=== PATIENT | female | born 1975 | race Caucasian/White ===

== ENCOUNTER 2024-05-06 06:00 | Day surgery (SDC) | payer OTHER, SELFPAY ==
--- NOTE | 2024-05-01 11:31 | ESHP_ITS ---
RE: PHOENIX OLIVA : 1975 DATE OF ADMISSION: 05/01/2024 DATE OF OPERATION: 05/06/2024. CHIEF COMPLAINT: Numbness, tingling, right and left hand, right more than left. 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 The patient does repetitive activity with her hands and developed bilateral carpal tunnel. We followed it for some time and it became worse. A repeat carpal tunnel showed a significant carpal tunnel syndrome requiring release of both right and left carpal tunnel. PAST MEDICAL HISTORY: Reviewed. SOCIAL HISTORY: Three children. BLOOD TRANSFUSION: Yes. OPERATIONS: Appendectomy, cholecystectomy, intussusception, and gastric bypass. No other operations. ALLERGIES: NONE. MEDICATIONS: 1. Lisinopril. 2. Hydrocodone 10 mg b.i.d. to t.i.d. for chronic pain syndrome. 3. Fentanyl transdermal patch 50 mcg changed every three days. MAJOR MEDICAL ILLNESSES: Hypertension, diabetes, myocardial infarction. REVIEW OF SYSTEMS: Weight loss is absent. Appetite is good. Energy level is good. Denies chest pain, shortness of breath, orthopnea, paroxysmal nocturnal dyspnea, dyspnea on exertion, productive cough, or hemoptysis. She denies any nausea, vomiting, diarrhea, constipation, hematemesis, hematochezia, melena, black tarry bowel movements. She denies any dysuria or prior hematuria. Denies stroke, seizures, syncopal episodes. 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 No difficulty with balance. Numbness or tingling in the hands. No change in molds or rashes. Mammogram 2018. Rarely has a cigarette. PHYSICAL EXAMINATION: GENERAL: Well-developed, well-nourished, young woman, in no acute distress. HEENT: Normocephalic without masses. EOMs full. Throat clear. NECK: Supple. CHEST: Clear to P and A. HEART: Regular rate and rhythm without murmurs. No gallops. ABDOMEN: Soft, nontender. No masses. No organomegaly. BREAST: Deferred. RECTAL: Deferred. EXTREMITIES: Examination of the extremity shows that she has numbness and tingling in the median nerve distribution of both hands exacerbated by Phalen's test. She does have a positive Tinel's test. No thenar atrophy. ASSESSMENT: Bilateral carpal tunnel syndrome. PLAN: We treated her with splints. It has been worse and it does awaken her at night. 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 We went over the risks of the procedure and signed informed consent was obtained in my office. DT: 09:55:55 TT: 11:20:00 Ref: [id number] - TID: [id number]
--- NOTE | 2024-05-03 06:38 | EKG_ITS ---
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
[2024-05-03 07:55] VITALS: BMI 21.5
[2024-05-03 08:36] LABS: Basophils % (Auto) 0 % (0-2.5); Eosinophils # (Auto) 0.1 Thou/mm3 (0.0-0.5); Eosinophils % (Auto) 2 % (0-10); Hematocrit 35.3 % (36.0-46.0); Hemoglobin 11.9 g/dL (12.0-16.0); Immature Granulocytes % (Auto) 1 % (0-0); Immature Granulocytes Auto 0.04 Thou/mm3 (0.00-0.00); Lymphocytes # (Auto) 2.8 Thou/mm3 (1.0-4.8); Lymphocytes % (Auto) 50 % (10-50); Mean Corpuscular HGB Conc 33.7 g/dl (31.0-37.0); Mean Corpuscular Hemoglobin 29.5 pg (25.0-35.0); Mean Corpuscular Volume 87 fL (80-100); Monocytes # (Auto) 0.4 Thou/mm3 (0.0-0.8); Monocytes % (Auto) 7 % (0-12); Neutrophils # (Auto) 2.3 Thou/mm3 (1.8-7.7); Neutrophils % (Auto) 40 % (37-80); Nucleated Red Blood Cell % 0 /100 WBC (0); Platelet Count 304 Thou/mm3 (140-440); Red Blood Count 4.04 Miln/mm3 (4.00-5.20); White Blood Count 5.6 Thou/mm3 (3.6-11.0)
[2024-05-03 08:43] LABS: Partial Thromboplastin Time 25.4 Seconds (22.0-36.0); Prothrombin Time 10.6 Seconds (9.0-12.2)
[2024-05-03 08:47] LABS: Alanine Aminotransferase 13 U/L (10-49); Albumin, Serum 4.4 gm/dL (3.5-5.0); Albumin/Globulin Ratio 1.6 (1.2-2.2); Alkaline Phosphatase 88 U/L (46-116); Anion Gap 5 (7-16); Aspartate Amino Transferase 26 U/L (0-34); BUN/Creatinine Ratio 14 Ratio (12-20); Bilirubin,Total 0.3 mg/dL (0.3-1.2); Blood Urea Nitrogen 13 mg/dL (9-23); Calcium 10.3 mg/dL (8.3-10.6); Calcium (Corrected) 10.3 mg/dL (8.5-10.1); Carbon Dioxide 29.2 mMol/L (20.0-31.0); Chloride 110 mMol/L (98-107); Creatinine (Component) 0.9 mg/dL (0.6-1.3); Estimated Creatinine Clearance 60.5 mL/min (>60); Globulin 2.7 gm/dL (2.3-3.5); Glucose 95 mg/dL (74-106); Osmolality,Calculated 286 (275-295); Potassium 4.8 mMol/L (3.4-5.1); Sodium 144 mMol/L (136-145); Total Protein 7.1 gm/dL (5.7-8.2); eGFR > 60 See Note
[2024-05-06] VITALS (8 sets, daily range): BP systolic 102–112; BP diastolic 58–72; PULSE 64–109; RESP 12–18; TEMP 36.4–37.2; O2SAT 98–100; BMI 21.9
--- NOTE | 2024-05-06 07:35 | SUR.PREOP ---
Patient expressed gratitude for prayer before their procedure.
--- NOTE | 2024-05-06 08:42 | ESOP_ITS ---
Date of Procedure 05/06/24 Pre Op Diagnosis Right carpal tunnel syndrome Post Op Diagnosis Right carpal tunnel syndrome Procedure Release of right carpal tunnel Findings Thick transverse carpal ligament Procedure Description Patient taken the operating operating room and after satisfactory general anesthesia achieved the right upper extremity was confirmed as the correct extremity during the timeout procedure. She received 2 g of Ancef. Right upper extremity was prepped and draped in standard fashion. The tourniquet was elevated to 200 mmHg after the arm had been exsanguinated with an Esmarch bandage. Longitudinal incision was made over the transverse carpal ligament. Transverse carpal ligament was identified and split distally with a #15 blade and proximally into the distal antebrachial fascia using a small curved strabismus scissors. The nerve was pinched deep to the transverse carpal ligament. It was not hyperemic. The ligament was released in its entirety. The wound was copiously again copiously irrigated with Betadine and saline solution. The tourniquet was deflated. small bleeders were electrocoagulated. Wound was closed with 4-0 and 5-0 nylon bulky dressing was applied using saline soaked Kerlix sponges over Bactroban ointment dry Kerlix sponges and sterile 4 inch cut bias followed by net dressing. she was taken recovery room uneventfully Anesthesia GETA Drains None Implants None Pathology / specimen None IVF Infused 500 Urine Output 0 Estimated Blood Loss 3 Condition Stable Disposition PACU Surgeon Moose Naidu MD Surgical Staff Operation Date: 05/06/24 07:30 Case Staff Anesthesiologist: Francisco J Huang RNpharmacy clinical coordinator: Debbie Cruz
--- NOTE | 2024-05-06 08:43 | SUR.PHASEI ---
0843: Pt. AAOx4, vitals stable, breathing unlabored, no complaint of pain or nasuea, dressing to right hand CDI , no active bleed noted, pt. able to wiggle bilateral fingers, bilateral brachial pulses strong and regular, cap refill to bilateral hands less than 3 seconds. Report received from MD Huang, Kaylene RN, and Yuli BIRD.
--- NOTE | 2024-05-06 09:43 | SUR.PHASEII ---
0943: Pt. AAOx4, vitals stable, breathing unlabored, no complaint of pain or nausea, dressing to right hand CDI, no active bleed noted, pt. able to wiggle bilateral fingers, cap refill to bilateral hands less than 3 seconds, bilateral brachial pulses strong and regular, pt. tolerated sips of water well, pt. ambulated to wheelchair with steady gait and no assist, no complications. Gave discharge instructions to the pt. and her ride, both verbalized understanding and had no further questions. Pt. left with all personal belongings.
== END 2024-05-06 09:43 | disposition home or self-care (01) ==
PROVIDERS: PCP Internal Medicine; Referring Provider Orthopaedic Surgery; Visit Provider Orthopaedic Surgery
PROC: (CPT 64721; principal; 2024-05-06 07:30)
DX: G56.01 Carpal tunnel syndrome, right upper limb (principal); Z01.810 Encounter for preprocedural cardiovascular examination
CPT/HCPCS: 64721; 36415; 80053; 85025; 85610; 85730; 93005; A4217; A4649; J0690; J1100; J2371; J2704; J2765; J2795; J3010; J3490; A9270